=== PATIENT | female | born 1975 | race Caucasian/White ===

== ENCOUNTER 2017-01-17 08:26 | Emergency (ER) | payer OTHER ==
[~2017-01-17] VITALS: Ht 175.3 cm; Wt 52.0 kg
[2017-01-17 08:30] VITALS: Ht 175.3 cm; Wt 52.0 kg
[2017-01-17] MEDS ORDERED: SSD1C20 TOP (09:03)
[2017-01-17] MEDS ORDERED: IBUP-1542 PO (09:04)
[2017-01-17] MEDS ORDERED: ACYC800T57 PO (09:05)
--- NOTE | 2017-01-17 09:18 | ERD ---
ER Documentation Chief Complaint Date/Time DATE: 01/17/17 TIME: 09:11 Chief Complaint possible chemical burn for using skin cream on left neck chest & arm x1wk HPI This is a 41-year-old female who presents the emergency department today "sunburn" on the left side of her neck and chest. Patient states that she used the retinol cream all over her face and her neck and that a couple days later she started having some pain and noticed that she had a sunburn. States that that is the left side of her body and that is where she is in the sun when she drives. States that she did feel feverish a few days ago. Denies any other symptoms. ROS All systems reviewed and are negative except as per history of present illness. Medications Home Meds Active Scripts Acyclovir* (Zovirax*) 800 Mg Tablet, 800 MG PO 5 TIMES DAILY for 7 Days, TAB Prov:PAMELA RAPP PA-C 01/17/17 Ibuprofen* (Motrin*) 600 Mg Tab, 600 MG PO Q6, #30 TAB Prov:PAMELA RAPP PA-C 01/17/17 Silver Sulfadiazine (THERMAZENE 1% 25 GM) 1 Applic Cr, 1 APPLIC TOP BID for 7 Days, #1 TUB Prov:PAMELA RAPP PA-C 01/17/17 Allergies Allergies: Coded Allergies: Penicillins (Unverified Allergy, Unknown, 01/17/17) PMhx/Soc Hx Alcohol Use: No Hx Substance Use: No Hx Tobacco Use: No Physical Exam Vitals Vital Signs Date Time Temp Pulse Resp B/P Pulse Ox O2 Delivery O2 Flow Rate FiO2 01/17/17 08:30 98.1 79 18 111/74 99 Physical Exam Const: NAD Head: Atraumatic Eyes: Normal Conjunctiva ENT: Normal External Ears, Nose and Mouth. Neck: Full range of motion..~ No meningismus. Resp: Clear to auscultation bilaterally Cardio: Regular rate and rhythm, no murmurs Abd: Soft, non tender, non distended. Normal bowel sounds Skin: Diffuse vesicular erythematous rash over left side of neck, chest and upper portion of left arm Back: No midline or flank tenderness Ext: No cyanosis, or edema Neur: Awake and alert Psych: Normal Mood and Affect Procedures/MDM This 41-year-old female who presents to the emergency department today complaining of a sunburn to the left side of her neck and chest after using retinol cream approximately 1 week ago. On physical exam patient has erythematous vesicular lesions along somewhat multi-dermatomal pattern. This area is not bullous but rather vesicular and fluid-filled. I explained to the patient that I do think that she has shingles. Patient did have chickenpox as a teenager. Patient is adamant that she does not have shingles. Patient keeps stating that she does have a sunburn and that this is only possible cause after using the retinal cream. I explained to the patient again that while she may in fact have some sunburn this also appears to be shingles-like rash. Patient is afebrile and otherwise well-appearing. I have low suspicion for meningitis, SJS, TEN, sepsis or severe acute bacterial infection. Dr. Dave did see and evaluate the patient and is in agreement. Patient was given a prescription for Motrin, acyclovir and Silvadene cream.Patient was also given a list of names for community clinics as well as insurance specialist. At this time the patient is stable for discharge and outpatient management. Patient should follow up with their PCP in the next 1-2 days. They may return to the emergency department sooner for any persistent or worsening of symptoms. Patient understood and agreed with the plan. Departure Diagnosis: Primary Impression: Rash and nonspecific skin eruption Condition: Fair Patient Instructions: Shingles (Herpes Zoster) Referrals: RONDA WELLINGTON MD,SUZANNE GUEVARA MD,MILAD EDMOND,DANIEL MUNOZ,KINGSTON TALBOT Additional Instructions: Call your primary care doctor TOMORROW for an appointment during the next 1-2 days.See the doctor sooner or return here if your condition worsens before your appointment time. Take tylenol or motrin for pain Use cream as needed for comfort. Take acyclovir as prescribed Follow up with insurance specialist or PCP PAMELA RAPP PA-C Jan 17, 2017 09:18
== END 2017-01-17 09:44 | disposition home or self-care (01) ==
LOC: FTE 08:26
DX: R21 Rash and other nonspecific skin eruption (principal)
CPT/HCPCS: 99284